=== PATIENT | male | born 1965 | race African-American/Black ===

== ENCOUNTER → 2019-07-16 13:59 | Outpatient (CLI) | payer MEDICAID, SELFPAY ==
--- NOTE | 2019-07-16 14:04 | US_ITS ---
APPROVED REPORT Exam Type: Lower Extremity Segmental Pressures Diagnostic Technician: Stephanie Mott RVT Indications Claudication: Rest Pain: Bilaterally Numbness/Tingling Current Smoker Risk Factors Hypertension Hyperlipidemia Diabetes Current Smoker Pressures/Indices Right Indices Left Indices Brachial 126.00 mmHg Brachial 123.00 mmHg Low Thigh 142.00 mmHg 1.13 Low Thigh 138.00 mmHg 1.10 Calf 127.00 mmHg 1.01 Calf 135.00 mmHg 1.07 Ankle(PT) 134.00 mmHg 1.06 Ankle(PT) 144.00 mmHg 1.14 Ankle(DP) 146.00 mmHg 1.16 Ankle(DP) 138.00 mmHg 1.10 Digit 72.00 mmHg 0.57 Digit 68.00 mmHg 0.54 Findings RT JV:1.06 LT JV:1.14 RT TBI:0.57 LT TBI:0.54 NORMAL PULSES DAYANNA NORMAL WAVEFORMS DAYANNA Conclusion Normal exam Electronically signed by : Darryn Ballard MD 07/26/2019 19:12:33
== END ==
PROVIDERS: PCP Nurse Practitioner Family; Visit Provider Podiatrist
DX: R09.89 Other specified symptoms and signs involving the circulatory and respiratory systems (principal)
CPT/HCPCS: 93923